=== PATIENT | male | born 1960 | race Caucasian/White ===

== ENCOUNTER → 2016-06-05 | Outpatient (CLI) | payer MEDICARE ==
[~2016-06-05] MED LIST: APIX5TAB PO; ASPI-515 PO; ATOR20TA9 PO; AZIT500T PO; AZIT500T4 PO; CEFD300C2 PO; ENOX120S5 SQ; FURO-93 PO; HYDR-3138 PO; HYDR25TA6 PO; HYDR5TAB2 PO; IBUP-1222 PO; IBUP400T PO; METH4TAB2 PO; NIAC250C2 PO; NIAC500T85 PO; OMEG1CAP12 PO; OXYC5TAB3 PO; POTA10TA31 PO; SOTA120T26 PO; TRIA1CAP3 PO; WARF5TAB PO; WARF7.5T6 PO-COUM; probiotic PO
== END | disposition home or self-care (01) ==
LOC: PETCFH 08:50
PROVIDERS: ATTEND Internal Medicine Critical Care Medicine
DX: I26.99 Other pulmonary embolism without acute cor pulmonale (principal); R91.1 Solitary pulmonary nodule
CPT/HCPCS: 78815; A9552

== ENCOUNTER → 2016-07-01 | Outpatient (CLI) | payer MEDICARE ==
[2016-07-01 13:18] LABS: ASPARTATE AMINO TRANSFERASE 16 U/L (15-37)
[2016-07-01 13:34] LABS: BLOOD UREA NITROGEN 12 mg/dL (7-18)
== END | disposition home or self-care (01) ==
LOC: LAB 11:40
PROVIDERS: ATTEND Internal Medicine Cardiovascular Disease
DX: I10 Essential (primary) hypertension (principal); R09.02 Hypoxemia
CPT/HCPCS: 36415; 80053; 80061

== ENCOUNTER 2017-07-12 13:53 | Inpatient (IN) | payer MEDICARE ==
[~2017-07-12] VITALS: Ht 185.4 cm; Wt 114.0 kg
[~2017-07-12 13:53] MED LIST changes: -AZIT500T4 PO; +AZIT500T5 PO; -CEFD300C2 PO; +CEFD300C37 PO; -HYDR-3138 PO; +HYDR-3237 PO; +IBUP-1221 PO; -IBUP400T PO; -OMEG1CAP12 PO; +OMEG1CAP23 PO
[2017-07-12] MEDS ORDERED: MAGN400T36 PO (14:24)
[2017-07-12] MEDS ORDERED: LACT1CAP35 PO (14:25)
[2017-07-12] MEDS ORDERED: ASCO10004 PO (14:25)
[2017-07-12] MEDS ORDERED: VITA1CAP PO (14:25)
[2017-07-12] MEDS ORDERED: CHOL2000 PO (14:26)
[2017-07-12] MEDS ORDERED: SODIUM CHLORIDE FLUSH 10ML SYR IVF ONE (14:30)
[2017-07-12 14:35] LABS: BASOPHILS # (AUTO) 0.03 x10^3/uL (0-0.1); BASOPHILS % (AUTO) 0 % (0-1); EOSINOPHILS # (AUTO) 0.14 x10^3/uL (0-0.4); EOSINOPHILS % (AUTO) 2 % (1-7); LYMPHOCYTES # (AUTO) 2.59 x10^3/uL (1-3.4); LYMPHOCYTES % (AUTO) 31 % (22-44); MD NO; MEAN CORPUSCULAR HEMOGLOBIN 30.6 pg (27.5-34.5); MEAN CORPUSCULAR HGB CONC 34.3 g/dL (33.2-36.2); MEAN CORPUSCULAR VOLUME 89.3 fL (81-97); MEAN PLATELET VOLUME 9.3 fL (7.4-10.4); MONOCYTES # (AUTO) 0.49 x10^3/uL (0.2-0.8); MONOCYTES % (AUTO) 6 % (2-9); NEUTROPHILS # (AUTO) 5.01 x10^3/uL (1.8-6.8); NEUTROPHILS % (AUTO) 61 % (42-75); PLATELET COUNT 236 x10^3/uL (130-400); RED BLOOD COUNT 4.91 x10^6/uL (4.38-5.82); RED CELL DISTRIBUTION WIDTH 13.4 % (9.4-14.8)
[2017-07-12 14:40] LABS: INTERNATIONAL NORMALIZED RATIO 2.88 (0.93-1.1); PROTHROMBIN TIME 29.1 Seconds (9.6-11.5)
[2017-07-12 14:43] LABS: ALBUMIN 3.7 g/dL (3.4-5.0); ANION GAP 9 mmol/L (5-15); CALCIUM 8.7 mg/dL (8.5-10.1); CHLORIDE 109 mmol/L (98-107); CREATININE 1.08 mg/dL (0.7-1.3)
[2017-07-12 14:47] LABS: TROPONIN I < 0.015 ng/mL (0.000-0.045)
[2017-07-12 17:25] VITALS: BP 163/88
[2017-07-12] MEDS ORDERED: ACETAMINOPHEN 325 MG TABLET PO PRN (18:00)
[2017-07-12] MEDS ORDERED: ONDANSETRON 2MG/ML, 2ML IVPush PRN (18:00)
[2017-07-12] MEDS ORDERED: ENALAPRILAT 1.25 MG/ML, 2ML IVPush PRN (18:00)
[2017-07-12] MEDS ORDERED: hydrALAzine 20 MG/ML, 1ML IVPush PRN (18:00)
[2017-07-12] MEDS ORDERED: ONDANSETRON ODT 4 MG PO PRN (18:00)
[2017-07-12 18:37] LABS: TROPONIN I < 0.015 ng/mL (0.000-0.045)
[2017-07-12 18:41] LABS: HEMOGLOBIN A1C 5.9 % (4.2-6.3)
[2017-07-12] MEDS ORDERED: WARFARIN 5 MG TABLET PO-COUM ONE (19:00)
[2017-07-12 19:15] LABS: MICROSCOPIC NOT IND
[2017-07-12 19:19] LABS: CULTURE INDICATED? NO
[2017-07-12 19:46] VITALS: BP 129/78
[2017-07-12] MEDS: NIACIN 250 MG CAPSULE.ER PO SCH (19:52)
[2017-07-12] MEDS: SOTALOL 120MG TABLET PO SCH (19:52)
[2017-07-13 00:19] LABS: TROPONIN I < 0.015 ng/mL (0.000-0.045)
[2017-07-13 01:31] VITALS: BP 103/66
[2017-07-13 05:10] LABS: BASOPHILS # (AUTO) 0.04 x10^3/uL (0-0.1); BASOPHILS % (AUTO) 1 % (0-1); EOSINOPHILS # (AUTO) 0.18 x10^3/uL (0-0.4); EOSINOPHILS % (AUTO) 2 % (1-7); LYMPHOCYTES # (AUTO) 2.91 x10^3/uL (1-3.4); LYMPHOCYTES % (AUTO) 35 % (22-44); MD NO; MEAN CORPUSCULAR HEMOGLOBIN 30.7 pg (27.5-34.5); MEAN CORPUSCULAR HGB CONC 34.3 g/dL (33.2-36.2); MEAN CORPUSCULAR VOLUME 89.7 fL (81-97); MEAN PLATELET VOLUME 9.1 fL (7.4-10.4); MONOCYTES # (AUTO) 0.88 x10^3/uL (0.2-0.8); MONOCYTES % (AUTO) 11 % (2-9); NEUTROPHILS # (AUTO) 4.26 x10^3/uL (1.8-6.8); NEUTROPHILS % (AUTO) 52 % (42-75); PLATELET COUNT 195 x10^3/uL (130-400); RED BLOOD COUNT 4.53 x10^6/uL (4.38-5.82); RED CELL DISTRIBUTION WIDTH 13.7 % (9.4-14.8)
[2017-07-13 05:20] LABS: INTERNATIONAL NORMALIZED RATIO 2.63 (0.93-1.1); PROTHROMBIN TIME 26.6 Seconds (9.6-11.5)
[2017-07-13 05:21] LABS: ALBUMIN 3.2 g/dL (3.4-5.0); ANION GAP 7 mmol/L (5-15); CALCIUM 8.2 mg/dL (8.5-10.1); CHLORIDE 110 mmol/L (98-107)
[2017-07-13 05:35] LABS: ALANINE AMINOTRANSFERASE 27 U/L (12-78); ALKALINE PHOSPHATASE 76 U/L (45-117); BILIRUBIN,TOTAL 0.3 mg/dL (0.2-1.0); CHOL/HDL RATIO 7.5; CHOLESTEROL, TOTAL 202 mg/dL (140-239); HDL CHOL % 13 % (26-37); HDL CHOLESTEROL (DIRECT) 27 mg/dL (40-60); LDL CHOLESTEROL,CALCULATED 98 mg/dL (54-169); LDL/HDL RATIO 3.6 (0.5-3.0); TOTAL PROTEIN 6.4 g/dL (6.4-8.2); TRIGLYCERIDES 384 mg/dL (50-200); VLDL CHOLESTEROL 77 mg/dL (0-25)
[2017-07-13 07:27] VITALS: BP 123/80
[2017-07-13] MEDS: NIACIN 250 MG CAPSULE.ER PO SCH (07:40)
[2017-07-13] MEDS: SOTALOL 120MG TABLET PO SCH (07:40)
[2017-07-13] MEDS ORDERED: CHOLECALCIFEROL 1,000 UNIT TABLET PO SCH (09:00)
[2017-07-13] MEDS ORDERED: LACTOBACILLUS CHEW TABLET PO SCH (09:00)
[2017-07-13] MEDS ORDERED: MULTIVITS,STRESS FORMULA 1 TABLET PO SCH (09:00)
[2017-07-13] MEDS ORDERED: MAGNESIUM OXIDE 400 MG TABLET PO SCH (09:00)
[2017-07-13] MEDS ORDERED: ASCORBIC ACID 500 MG TABLET PO SCH (09:00)
[2017-07-13] MEDS ORDERED: FENOFIBRATE 145 MG TABLET PO SCH (10:00)
[2017-07-13] MEDS ORDERED: REGADENOSON 0.4 MG/5 ML SYRINGE ONE (12:51)
[2017-07-13 14:17] VITALS: BP 128/86
[2017-07-13] MEDS ORDERED: ATOR20TA9 PO (16:03)
[2017-07-13] MEDS ORDERED: FENO145T13 PO (16:03)
[2017-07-13] MEDS ORDERED: WARFARIN 5 MG TABLET PO-COUM ONE (18:00)
== END 2017-07-13 19:14 | disposition home or self-care (01) | DRG 309 ==
LOC: ED 15:51 → 5SO 16:06
PROVIDERS: ADMIT Emergency Medicine; ATTEND Emergency Medicine
PROC: 4B02XSZ Measurement of Cardiac Pacemaker, External Approach (ICD-10-PCS; principal; 2017-07-12)
DX: R00.2 Palpitations (principal); D68.59 Other primary thrombophilia; G20 Parkinson's disease; E66.2 Morbid (severe) obesity with alveolar hypoventilation; E27.40 Unspecified adrenocortical insufficiency; R07.89 Other chest pain; I25.10 Atherosclerotic heart disease of native coronary artery without angina pectoris; I48.91 Unspecified atrial fibrillation; E87.6 Hypokalemia; E78.2 Mixed hyperlipidemia; I10 Essential (primary) hypertension; I25.2 Old myocardial infarction; I44.7 Left bundle-branch block, unspecified; I48.0 Paroxysmal atrial fibrillation; I69.331 Monoplegia of upper limb following cerebral infarction affecting right dominant side; T45.515A Adverse effect of anticoagulants, initial encounter; Z79.01 Long term (current) use of anticoagulants; Z80.8 Family history of malignant neoplasm of other organs or systems; Z82.49 Family history of ischemic heart disease and other diseases of the circulatory system; Z83.3 Family history of diabetes mellitus; Z86.711 Personal history of pulmonary embolism; Z86.718 Personal history of other venous thrombosis and embolism; Z87.891 Personal history of nicotine dependence; Z91.19 Patient's noncompliance with other medical treatment and regimen; Z95.0 Presence of cardiac pacemaker; I44.0 Atrioventricular block, first degree; Z68.33 Body mass index [BMI] 33.0-33.9, adult; Z88.8 Allergy status to other drugs, medicaments and biological substances; Z91.041 Radiographic dye allergy status; Z90.49 Acquired absence of other specified parts of digestive tract
CPT/HCPCS: 36415; 71045; 78452; 80048; 80053; 80061; 81003; 82040; 82962; 83036; 84443; 84484; 85025; 85610; 93005; 93017; 93306; 99285; J2785; A9502; C9898

== ENCOUNTER 2019-03-29 12:20 | Observation (INO) | payer MEDICARE ==
[~2019-03-29] VITALS: Ht 182.9 cm; Wt 99.9 kg
[~2019-03-29 12:20] MED LIST changes: +ASCO10004 PO; +ATOR20TA37 PO; -ATOR20TA9 PO; +AZIT500T10 PO; -AZIT500T5 PO; +CHOL2000 PO; +FENO145T30 PO; -HYDR5TAB2 PO; +HYDR5TAB7 PO; +LACT1CAP35 PO; +MAGN400T36 PO; +VITA1CAP PO; +WARF7.5T46 PO-COUM; -WARF7.5T6 PO-COUM
[2019-03-29 13:04] LABS: BASOPHILS # (AUTO) 0.03 x10^3/uL (0-0.1); BASOPHILS % (AUTO) 0 % (0-1); EOSINOPHILS # (AUTO) 0.34 x10^3/uL (0-0.4); EOSINOPHILS % (AUTO) 4 % (1-7); LYMPHOCYTES # (AUTO) 2.75 x10^3/uL (1-3.4); LYMPHOCYTES % (AUTO) 29 % (22-44); MD NO; MEAN CORPUSCULAR HEMOGLOBIN 29.8 pg (27.5-34.5); MEAN CORPUSCULAR HGB CONC 33.2 g/dL (33.2-36.2); MEAN CORPUSCULAR VOLUME 89.8 fL (81-97); MEAN PLATELET VOLUME 10.3 fL (7.4-10.4); MONOCYTES # (AUTO) 0.77 x10^3/uL (0.2-0.8); MONOCYTES % (AUTO) 8 % (2-9); NEUTROPHILS # (AUTO) 5.77 x10^3/uL (1.8-6.8); NEUTROPHILS % (AUTO) 60 % (42-75); PLATELET COUNT 244 x10^3/uL (130-400); RED BLOOD COUNT 5.09 x10^6/uL (4.38-5.82); RED CELL DISTRIBUTION WIDTH 13.9 % (9.4-14.8)
[2019-03-29 13:13] LABS: INTERNATIONAL NORMALIZED RATIO 2.88 (0.93-1.1)
[2019-03-29 13:15] LABS: ALANINE AMINOTRANSFERASE 53 U/L (12-78); ALBUMIN 3.8 g/dL (3.4-5.0); ANION GAP 9 mmol/L (5-15); CALCIUM 8.4 mg/dL (8.5-10.1); CHLORIDE 109 mmol/L (98-107); CREATININE 1.14 mg/dL (0.7-1.3)
[2019-03-29 13:19] LABS: ALKALINE PHOSPHATASE 83 U/L (45-117); BILIRUBIN,TOTAL 0.4 mg/dL (0.2-1.0); TOTAL PROTEIN 7.5 g/dL (6.4-8.2); TROPONIN I < 0.015 ng/mL (0.000-0.045)
[2019-03-29] MEDS ORDERED: DIPH,PERTUSS(ACELL),TET VAC/PF 0.5 ML IM-VACC ONE ×2 (14:18→14:30)
[2019-03-29] MEDS ORDERED: POTASSIUM PO (14:27)
[2019-03-29] MEDS ORDERED: WARF10TA PO (14:27)
[2019-03-29] MEDS ORDERED: MULT-516 PO (14:27)
[2019-03-29] MEDS ORDERED: NITROGLYCERIN 0.4 MG BOTTLE (25 TABS) SL PRN (15:00)
[2019-03-29] MEDS: LIDODERM 5% PATCH TD SCH (15:00)
[2019-03-29] MEDS ORDERED: ACETAMINOPHEN 325 MG TABLET PO PRN (15:00)
[2019-03-29] MEDS ORDERED: NITROGLYCERIN 0.4 MG/SPRAY SL PRN (15:00)
[2019-03-29 15:18] LABS: INTERNATIONAL NORMALIZED RATIO 2.71 (0.93-1.1); PROTHROMBIN TIME 27.4 Seconds (9.6-11.5)
[2019-03-29 15:21] LABS: CHOLESTEROL, TOTAL 264 mg/dL (140-239); TRIGLYCERIDES 457 mg/dL (50-200)
[2019-03-29 15:23] LABS: CHOL/HDL RATIO 8.8; HDL CHOL % 11 % (26-37); HDL CHOLESTEROL (DIRECT) 30 mg/dL (40-60)
[2019-03-29] MEDS ORDERED: LIDODERM 5% PATCH TD ONE (18:19)
[2019-03-29] MEDS ORDERED: WARFARIN 10 MG TABLET PO-COUM ONE (18:30)
[2019-03-29] MEDS: GABAPENTIN 100 MG CAPSULE PO SCH (18:38)
[2019-03-29 19:09] LABS: TROPONIN I < 0.015 ng/mL (0.000-0.045)
[2019-03-29 21:34] VITALS: BP 135/87
[2019-03-29] MEDS: SOTALOL 120MG TABLET PO SCH (21:38)
[2019-03-29] MEDS: SODIUM CHLORIDE FLUSH 10ML SYR IVF SCH (21:39)
[2019-03-30 01:02] VITALS: BP 87/59
[2019-03-30] MEDS: GABAPENTIN 100 MG CAPSULE PO SCH ×4 (01:15→17:00)
[2019-03-30 01:16] VITALS: BP 127/85
[2019-03-30 01:46] LABS: INTERNATIONAL NORMALIZED RATIO 2.75 (0.93-1.1); PROTHROMBIN TIME 27.8 Seconds (9.6-11.5)
[2019-03-30 01:52] LABS: TROPONIN I < 0.015 ng/mL (0.000-0.045)
[2019-03-30 02:45] VITALS: BP 116/73
[2019-03-30] MEDS ORDERED: LIDODERM REMOVE PATCH NOTE XX SCH (06:00)
[2019-03-30] MEDS ORDERED: ASPIRIN 325 MG TABLET EC PO SCH (06:00)
[2019-03-30 07:15] VITALS: BP 114/77
[2019-03-30] MEDS: SODIUM CHLORIDE FLUSH 10ML SYR IVF SCH (09:00)
[2019-03-30] MEDS: SOTALOL 120MG TABLET PO SCH (09:00)
[2019-03-30] MEDS ORDERED: MULTIVITAMIN 1 TABLET PO SCH (09:00)
[2019-03-30] MEDS ORDERED: ASCORBIC ACID 500 MG TABLET PO SCH (09:00)
[2019-03-30] MEDS ORDERED: REGADENOSON 0.4 MG/5 ML SYRINGE ONE (09:16)
[2019-03-30 13:31] VITALS: BP 123/82
[2019-03-30] MEDS: LIDODERM 5% PATCH TD SCH (15:00)
[2019-03-30] MEDS ORDERED: WARFARIN 5 MG TABLET PO-COUM ONE (16:56)
[2019-03-30] MEDS ORDERED: WARFARIN 10 MG TABLET PO-COUM SCH (18:00)
== END 2019-03-30 18:00 | disposition home or self-care (01) ==
LOC: ED 13:51 → INTOOBSV 13:52 → EDIP 13:52 → ED 14:56 → 5SO 20:54
PROVIDERS: ADMIT Hospitalist; ATTEND Internal Medicine
DX: R07.9 Chest pain, unspecified (principal); I11.0 Hypertensive heart disease with heart failure; G20 Parkinson's disease; E78.5 Hyperlipidemia, unspecified; I10 Essential (primary) hypertension; D68.59 Other primary thrombophilia; I50.9 Heart failure, unspecified; I26.99 Other pulmonary embolism without acute cor pulmonale; G47.30 Sleep apnea, unspecified; I44.7 Left bundle-branch block, unspecified; I49.5 Sick sinus syndrome; R94.31 Abnormal electrocardiogram [ECG] [EKG]; Z79.01 Long term (current) use of anticoagulants; Z23 Encounter for immunization
CPT/HCPCS: 36415; 70450; 71045; 72040; 78452; 80053; 80061; 83880; 84484; 85025; 85610; 90471; 90715; 93005; 93017; G0378; J2785; A9502